=== PATIENT | male | born 1980 | race Caucasian/White ===

== ENCOUNTER 2023-01-11 05:07 | Emergency (ER) | payer OTHER, SELFPAY ==
[2023-01-11] MEDS ORDERED: fentaNYL 50 mcg/mL 1 mL Vial ONE ×2 (06:28)
[2023-01-11] MEDS ORDERED: Ketamine 50 MG/ML (10ML VIAL) ONE (06:29)
[2023-01-11] MEDS ORDERED: Ondansetron PF 4 MG/2 ML Vial ONE (06:29)
[2023-01-11] MEDS ORDERED: Ondansetron ODT 4 MG TAB ONE (08:28)
== END 2023-01-11 08:35 | disposition home or self-care (01) ==
LOC: ERS 05:07
DX: S63.005A Unspecified dislocation of left wrist and hand, initial encounter (principal); S53.105A Unspecified dislocation of left ulnohumeral joint, initial encounter; W10.8XXA Fall (on) (from) other stairs and steps, initial encounter; Z92.83 Personal history of failed moderate sedation
CPT/HCPCS: 24600; 25605; 96374; 96375; 99152; 99153; J2405; J3010; Q0162